=== PATIENT | female | born 1995 | race Caucasian/White ===

== ENCOUNTER 2020-09-05 17:02 | Emergency (ER) | payer BC | END 2020-09-05 19:11 | disposition home or self-care (01) | LOC: MADERS 17:02 | DX: R06.2 Wheezing (principal); G93.40 Encephalopathy, unspecified; Z86.16 Personal history of COVID-19 | CPT/HCPCS: 71046 ==

== ENCOUNTER 2021-01-20 03:59 | Emergency (ER) | payer BC | END 2021-01-20 05:23 | disposition home or self-care (01) | LOC: MADERS 03:59 | DX: R33.9 Retention of urine, unspecified (principal) | CPT/HCPCS: 51702; 87077; 87086; 87186 ==

== ENCOUNTER 2021-10-12 20:48 | Emergency (ER) | payer BC ==
[2021-10-12 21:33] LABS: Bilirubin Negative (Negative); Blood, Urine Small (Negative); Clarity Clear (Clear); Glucose, Urine (Dipstick) Negative (Negative); Ketone, Urine Negative (Negative); Leukocyte Negative (Negative); Nitrite Negative (Negative); Protein, Urine (Dipstick) Negative (Neg-Trace); Urobilinogen 0.2 mg/dL (Less than 2)
[2021-10-12 21:35] LABS: Specific Gravity, Urine 1.007 (1.002-1.036)
[2021-10-12 21:37] LABS: Pregnancy Test - Urine (BHCG) Negative (Negative); Pregu Control Background? CLEAR/WHITE (CLR/WHITE); Pregu Control Bar Appear? YES (CONTROL BAR); Specific Gravity 1.007 (1.002-1.036)
[2021-10-12 21:39] LABS: Squamous Epithelial 0-3 HPF (0-3); WBC/HPF None Seen HPF (0-3)
[2021-10-12] MEDS ORDERED: Ketorolac Tromethamine 30 MG/ML VIAL ONE (21:54)
[2021-10-12] MEDS ORDERED: Lactated Ringer's 1,000 ML ONE (21:54)
[2021-10-12 23:10] LABS: #Basophils 0.2 thou/uL (0.0-0.2); #Eosinphils 0.3 thou/uL (0.0-0.7); #Lymphocytes 4.7 thou/uL (1.20-3.40); #Neutrophils 6.9 thou/uL (1.40-6.50); %Basophils 1.4 % (0.0-1.0); %Eosinophils 2.5 % (0.0-10.0); %Lymphocytes 35.6 % (21.0-51.0); %Monocytes 7.8 % (0.0-10.0); %Neutrophils 52.7 % (42.0-75.0); Hemoglobin 12.6 g/dL (12.0-16.0); Mean Corpuscular HGB CONC 32.2 g/dL (32.0-36.0); Mean Corpuscular Hemoglobin 27.7 pg (27.0-31.0); Mean Corpuscular Volume 85.9 fL (78.0-98.0); Platelet Count 71 thou/uL (130-400); Platelet Morphology Comment PLT clumps seen-ADEQ; RBC Distribution Width 12.2 % (11.5-14.5); Red Blood Cell (RBC) Count 4.56 mill/uL (4.20-5.40); White Blood Cell (WBC) Count 13.1 thou/uL (4.8-10.8)
[2021-10-12 23:31] LABS: ALT (SGPT) 19 U/L (8-55); AST (SGOT) 18 U/L (5-34); Alkaline Phosphatase 72 U/L (40-110); Anion Gap 15 mmol/L (10-20); BUN (Urea Nitrogen) 10 mg/dL (7.0-18.7); Bilirubin, Total 0.5 mg/dL (0.2-1.2); Calc. Creatinine Clearance 0 mL/min (70-130); Calcium 9.1 mg/dL (7.8-10.44); Carbon Dioxide 21 mmol/L (22-29); Chloride 108 mmol/L (98-107); Estimated GFR 122; Globulin 3.1 g/dL (2.4-3.5); Glucose 86 mg/dL (70-105); Lipase 74 U/L (8-78); Magnesium 2.2 mg/dL (1.6-2.6); Potassium 3.3 mmol/L (3.5-5.1); Protein, Total 7.1 g/dL (6.0-8.3); Sodium 141 mmol/L (136-145)
[2021-10-12] MEDS ORDERED: Potassium Chloride 20 MEQ TAB ONE (23:39)
== END 2021-10-13 | disposition home or self-care (01) ==
LOC: MADERS 20:48
DX: R33.9 Retention of urine, unspecified (principal); E87.6 Hypokalemia; R31.29 Other microscopic hematuria; D69.6 Thrombocytopenia, unspecified; E86.0 Dehydration; G89.29 Other chronic pain; R10.12 Left upper quadrant pain; I49.8 Other specified cardiac arrhythmias; Z79.84 Long term (current) use of oral hypoglycemic drugs; Z79.899 Other long term (current) drug therapy
CPT/HCPCS: 51702; 74176; 80053; 81003; 81015; 81025; 83605; 83690; 83735; 85025; 87086; 96372; J1885; J7120

== ENCOUNTER 2021-10-16 18:55 | Emergency (ER) | payer BC | END 2021-10-16 19:51 | disposition home or self-care (01) | LOC: MADERS 18:55 | DX: S20.462A Insect bite (nonvenomous) of left back wall of thorax, initial encounter (principal); I49.8 Other specified cardiac arrhythmias; W57.XXXA Bitten or stung by nonvenomous insect and other nonvenomous arthropods, initial encounter | CPT/HCPCS: 99282 ==

== ENCOUNTER 2021-10-19 10:44 | Emergency (ER) | payer BC | END 2021-10-19 11:11 | disposition home or self-care (01) | LOC: MADERS 10:44 | DX: T83.028A Displacement of other urinary catheter, initial encounter (principal); E11.9 Type 2 diabetes mellitus without complications; E88.81 Metabolic syndrome and other insulin resistance; E28.2 Polycystic ovarian syndrome; I49.8 Other specified cardiac arrhythmias | CPT/HCPCS: 99283 ==

== ENCOUNTER 2021-10-22 13:33 | Emergency (ER) | payer BC ==
[2021-10-22 15:02] LABS: Bilirubin Negative (Negative); Blood, Urine Moderate (Negative); Glucose, Urine (Dipstick) Negative (Negative); Ketone, Urine Negative (Negative); Leukocyte Small (Negative); Nitrite Positive (Negative); Protein, Urine (Dipstick) Negative (Neg-Trace); Specific Gravity, Urine 1.015 (1.005-1.030); Urobilinogen 0.2 mg/dL (Less than 2)
[2021-10-22 15:04] LABS: Clarity Hazy (Clear)
[2021-10-22 15:09] LABS: Bacteria/HPF Rare-Few HPF (None Seen); RBC/HPF 0-3 HPF (0-3); Squamous Epithelial 0-3 HPF (0-3); WBC/HPF 21-50 HPF (0-3)
== END 2021-10-22 15:58 | disposition home or self-care (01) ==
LOC: MADERS 13:33
DX: N39.0 Urinary tract infection, site not specified (principal); Z46.6 Encounter for fitting and adjustment of urinary device; Z79.899 Other long term (current) drug therapy; E11.9 Type 2 diabetes mellitus without complications; Z79.4 Long term (current) use of insulin
CPT/HCPCS: 81003; 81015; 87077; 87086; 87186; 99283

== ENCOUNTER 2022-08-23 16:27 | Outpatient (CLI) | payer BC | END 2022-08-23 16:28 | disposition home or self-care (01) | LOC: MADRAD 16:27 | PROVIDERS: ATTEND Registered Nurse | DX: M79.642 Pain in left hand (principal); M25.562 Pain in left knee; W19.XXXA Unspecified fall, initial encounter ==

== ENCOUNTER 2023-06-30 22:13 | Emergency (ER) | payer BC ==
[2023-06-30] MEDS ORDERED: Mupirocin 2% Ointment 22 GM Tube ONE (22:42)
== END 2023-06-30 22:46 | disposition home or self-care (01) ==
LOC: MADERS 22:13
DX: L73.9 Follicular disorder, unspecified (principal)
CPT/HCPCS: 87070; 87205; 99284

== ENCOUNTER 2024-03-07 17:36 | Emergency (ER) | payer BC ==
[2024-03-07 19:01] LABS: Bilirubin Negative (Negative); Blood, Urine Moderate (Negative); Glucose, Urine (Dipstick) Negative (Negative); Ketone, Urine Negative (Negative); Leukocyte Negative (Negative); Nitrite Negative (Negative); Protein, Urine (Dipstick) Negative (Neg-Trace); Urobilinogen 0.2 mg/dL (Less than 2); pH, Urine 5.5 (5.0-9.0)
[2024-03-07 19:02] LABS: Clarity Slightly Cloudy (Clear)
[2024-03-07 19:03] LABS: Pregnancy Test - Urine (BHCG) Negative (Negative); Pregu Control Background? CLEAR/WHITE (CLR/WHITE); Pregu Control Bar Appear? YES (CONTROL BAR); Specific Gravity 1.017 (1.002-1.036)
[2024-03-07 19:25] LABS: CAUTI Indications for Culture Pelvic or flank pain; Transitional Epithelial 0-3 HPF (None Seen)
[2024-03-07 19:26] LABS: Urine Culture Reflex No No
[2024-03-07] MEDS ORDERED: Sodium Chloride 0.9% 1,000 ML ONE (19:39)
[2024-03-07] MEDS ORDERED: Ondansetron PF 4 MG/2 ML Vial ONE (19:39)
[2024-03-07] MEDS ORDERED: Famotidine/PF 20 mg/2ml Vial ONE (19:39)
[2024-03-07] MEDS ORDERED: Morphine 4 MG/ML VIAL ONE (19:39)
[2024-03-07] MEDS ORDERED: diphenhydrAMINE 50 MG/ML VIAL ONE (20:25)
[2024-03-07 20:30] LABS: Band 2 % (5-11); Eosinophils 4 % (0-10); Hematocrit 40.1 % (36.0-47.0); Hemoglobin 12.8 g/dL (12.0-16.0); Lymphocytes 25 % (21-51); MDiff Complete? YES; Mean Corpuscular Hemoglobin 27.7 pg (27.0-31.0); Mean Corpuscular Volume 86.5 fl (78.0-98.0); Mean Platelet Volume 8.3 fL (7.4-10.4); Monocytes 9 % (0-10); Neutrophil 60 % (42-75); Platelet Count 271 10x3/uL (130-400); RBC Distribution Width 14.1 % (11.5-14.5); Red Blood Cell (RBC) Count 4.63 mill/uL (4.20-5.40); White Blood Cell (WBC) Count 12.3 10x3/uL (4.8-10.8)
[2024-03-07 20:43] LABS: Troponin I Less than 0.010 ng/mL (< 0.028)
[2024-03-07 20:44] LABS: ALT (SGPT) 34 U/L (Less than 34); AST (SGOT) 24 U/L (11-34); Albumin 4.1 g/dL (3.1-4.5); Alkaline Phosphatase 67 U/L (40-110); Anion Gap 14 mmol/L (10-20); BUN (Urea Nitrogen) 9 mg/dL (7.0-18.7); Bilirubin, Total 0.5 mg/dL (0.3-1.2); Calc. Creatinine Clearance 0 mL/min (70-130); Calcium 9.1 mg/dL (7.8-10.44); Carbon Dioxide 21 mmol/L (22-29); Chloride 108 mmol/L (98-107); Estimated GFR 117; Globulin 3.5 g/dL (2.4-3.5); Glucose 90 mg/dL (70-105); Lipase 48 U/L (8-78); Potassium 4.1 mmol/L (3.5-5.1); Protein, Total 7.6 g/dL (6.0-8.3); Sodium 139 mmol/L (136-145)
[2024-03-08] MEDS ORDERED: traMADol HCl 50 MG TAB ONE (00:22)
== END 2024-03-08 01:05 | disposition home or self-care (01) ==
LOC: MADERS 17:36
DX: R10.12 Left upper quadrant pain (principal); E66.01 Morbid (severe) obesity due to excess calories; E11.9 Type 2 diabetes mellitus without complications; J45.909 Unspecified asthma, uncomplicated; Z79.51 Long term (current) use of inhaled steroids; Z79.899 Other long term (current) drug therapy; Z79.4 Long term (current) use of insulin
CPT/HCPCS: 74176; 80053; 81001; 81025; 83605; 83690; 83880; 84484; 85025; 96361; 96374; 96375; J1200; J2270; J2405; J3490; J7030

== ENCOUNTER 2024-03-26 15:04 | Outpatient (CLI) | payer BC | END 2024-03-26 15:05 | disposition home or self-care (01) | LOC: MADRAD 15:04 | PROVIDERS: ATTEND Nurse Practitioner Family | DX: R05.1 Acute cough (principal); R07.81 Pleurodynia | CPT/HCPCS: 71046 ==

== ENCOUNTER 2025-02-01 09:48 | Emergency (ER) | payer BC ==
[2025-02-01 10:30] LABS: Glucose, Urine (Dipstick) Negative (Negative); Leukocyte Negative (Negative); Protein, Urine (Dipstick) Negative (Neg-Trace); Specific Gravity, Urine Greater/Equal 1.030 (1.005-1.030)
[2025-02-01 10:38] LABS: Bacteria/HPF Rare-Few HPF (None Seen); CAUTI Indications for Culture Dysuria,urgency,freq; RBC/HPF 0-3 HPF (0-3); WBC/HPF 0-3 HPF (0-3)
[2025-02-01 10:39] LABS: Urine Culture Reflex No No
[2025-02-01] MEDS ORDERED: Ibuprofen 600 MG TAB ONE (10:48)
[2025-02-01] MEDS ORDERED: Acetaminophen 500 MG TAB ONE (10:49)
== END 2025-02-01 11:06 | disposition home or self-care (01) ==
LOC: MADERS 09:48
DX: R33.9 Retention of urine, unspecified (principal); E11.9 Type 2 diabetes mellitus without complications
CPT/HCPCS: 51702; 81001; 99283